=== PATIENT | female | born 2000 | race Hispanic/Latino ===

== ENCOUNTER 2023-12-10 20:31 | Emergency (ER) | payer OTHER ==
--- OUTSIDE RECORDS SUMMARY | 2023-12-10 20:34 | XMS REPORT | Continuity of Care Document ---
Author Name Unknown Address [address] [place] [address] [email or web address] Address [address] [place] [address] Care Team Providers Care Lead Web Developer Name Role Phone PCP, PATIENT DOES NOT HAVE A Primary Care Physic ha Unavailable ARIANA DONAHUE Attending Clinician Unavailable Ariana Donahue MD Attending Clinician [phone] Lab, Ang - Db Attending Clinician Unavailable Doctor Unassigned, [place] Attending Clinician U Alyx Gupta MD Attending Clinician [phone] Glenna Newby NP Attending Clinician + [phone] GLENNA NEWBY Attending Clinician Unavailmicheal GAONA ALYXHARIS QUINTANA Attending Clinician Unavailable Abram Skelton CRNA Attending Clinician [phone] Lupe Grover MD Attending Clinician [phone] Pob, Adc Lab Main Attending Clinician Unavailabl e Ultrasound, Adc Mfm Attending Clinician Unavaila Sidra Moya MD Attending Clinician + SIDRA BERGMAN Attending Clinician SAKINA Beckwith Attending Clinician Unavailable Sakina Amaro PA-C Attending Clinician [phone] Ultrasound, Ang-Mfm Attending Clinician Unavaila munira GAONA ALYX CAM Admitting Clinician Unavailable Alyx Gaona MD Admitting Clinician [phone] Payers Payer Name Policy Type Policy Number Effective Date Expirati on Date Source ALCIRA GARCIA [id number] 2011 00:00:00 Problems Condition Name Condition Details Condition Category Status Onset Date Resolution Date Last Treatment Date Treating Clinician Comments Source Liveborn infant, of [place] , born in hospital by vaginal delivery Liveborn , of [place] , born in hospital by vaginal delivery Disease Active 1-31 00:00: [address] [facility] Vacuum-ass isted vaginal delivery Vacuum-ass isted vaginal delivery Disease Active 1-31 00:00: 00 [facility] 39 weeks gestation of 39 weeks gestation of Disease Active 1-30 00:00: 00 [facility] Encounter for planned induction of labor Encounter for planned induction of labor Disease Active 1-30 00:00: 00 [facility] Obesity in Obesity in Disease Active 2021-08 0-29 00:00: 00 [facility] Nausea and vomiting during Nausea and vomiting during Disease Active 7-27 00:00: 00 [facility] Chlamydia trachomati s infection of lower genitourin irene sites Chlamydia trachomati s infection of lower genitourin irene sites Disease Active 6-24 00:00: 00 [facility] High risk , antepartum High risk , antepartum Disease Active 0 6-24 00:00: 00 [facility] Pelvic cramping in antepartum period Pelvic cramping in antepartum period Disease Active 6-03 00:00: 00 [facility] Allergies, Adverse Reactions, Alerts Allergy Name Allergy Type Status Severity Reaction(s) Onset Date Inactive Date Treating Clinician Comments Source NO KNOWN ALLERGIE S Drug Class Active [facility] Social History Social Habit Start Date Stop Date Quantity Comments Source ASSERTION 2021-12-24 00:00:00 [facility] History SDOH Alcohol Frequency [facility] History SDOH Alcohol Std Drinks [facility] History SDOH Alcohol Binge [facility] Alcohol intake 2023-10-08 00:00:00 2023-10-08 00:00:00 Ex-drinker (finding) [facility] Exposure to SARS-CoV-2 (event) 2022-10-08 00:00:00 2022-10-18 15:12:00 Not sure [facility] Tobacco use and exposure 2022-04-05 00:00:00 2022-04-05 00:00:00 Smokeless tobacco non-user [facility] Alcohol Comment 2022-01-11 00:00:00 2022-01-11 00:00:00 quit when found out was [facility] History of Social function 2022-01-11 00:00:00 2022-01-11 00:00:00 [facility] Sex Assigned At 2000 00:00:00 2000 00:00:00 [facility] Smoking Status Start Date Stop Date Source Never smoked tobacco [facility] Medications Ordered Medication Name Filled Medication Name Start Date Stop Date Current Medication? Ordering Clinician Indication Dosage Frequency Signature (SIG) Comments Components Source norgestimat e-ethinyl estradioL 0.25-35 mg-mcg per tablet 00:00: 00 Yes [id number] 1{tbl} Take 1 tablet by mouth in the morning. [facility] norgestimat e-ethinyl estradioL 0.25-35 mg-mcg per tablet 10-08 00:00: 00 00:00 :00 No [id number] 1{tbl} Take 1 tablet by mouth in the morning. [facility] vitamin w/FA tablet 09-11 00:00: 00 Yes [id number] 1{tbl} Take 1 tablet by mouth in the morning. [facility] vitamin w/FA tablet 09-11 00:00: 00 10-08 00:00 :00 No [id number] 1{tbl} Take 1 tablet by mouth in the morning. [facility] docusate 100 mg capsule 09-11 00:00: 00 10-08 00:00 :00 No [id number] 200mg Take 2 capsules by mouth once daily as needed for Constipati on. [facility] ferrous sulfate 325 mg (65 mg iron) tablet 09-11 00:00: 00 10-08 00:00 :00 No [id number] 325mg Take 1 tablet by mouth in the morning and 1 tablet in the evening. [facility] ibuprofen 600 mg tablet 2 00:00: 00 10-08 00:00 :00 No [id number] 600mg Take 1 tablet by mouth every 6 (six) hours as needed (Pain). Take with food or milk. [facility] witch Charis (TUCKS) 50 % topical pad 09-10 09:41: 42 Yes Topical, Q4HPRN, Starting on Fri09/10/22 at 0341, Until Discontinu ed, Routine, rectal/hem orrhoidal pain [facility] rho(D) immune globulin (RHOGAM) syringe 300 mcg 09-10 09:41: 18 Yes 300ug 300 mcg, Intramuscu lar, ONCE, For 1 dose, Conditiona l, Routine [facility] HYDROcodone -acetaminop hen (NORCO 5) 5-325 mg tablet 1 tablet 09-10 09:41: 16 Yes 1{tbl} 1 tablet, Oral, Q6HPRN, Starting on Fri09/10/22 at 0341, Until Discontinu ed, Routine, Pain (scale 7-10) [facility] ibuprofen (IBU) tablet 600 mg 09-10 09:41: 16 Yes 600mg 600 mg, Oral, Q6HPRN, Starting on Fri09/10/22 at 0341, Until Discontinu ed, Routine, Pain (scale 4-6) [facility] acetaminoph en (TYLENOL) tablet 650 mg 09-10 09:41: 16 Yes 650mg 650 mg, Oral, Q6HPRN, Starting on Fri09/10/22 at 0341, Until Discontinu ed, Routine, Pain (scale 1-3) [facility] diphenhydrA MINE (BENADRYL) tablet 25 mg 09-10 09:41: 16 Yes 25mg 25 mg, Oral, Q6HPRN, Starting on Fri09/10/22 at 0341, Until Discontinu ed, Routine, Sleep, Itching [facility] ondansetron (ZOFRAN (PF)) injection 4 mg 09-10 09:41: 16 Yes 4mg 4 mg, Slow IV Push, Q8HPRN, Starting on Fri09/10/22 at 034, Until Discontinu ed, Routine, Nausea and Vomiting (N/V) [facility] simethicone (GAS RELIEF (SIMETHICON E)) chewable tablet 160 mg 09-10 09:41: 16 Yes 160mg 160 mg, Oral, PC+HSPRN, Starting on Fri09/10/22 at 034, Until Discontinu ed, Routine, Gas [facility] docusate (COLACE) capsule 200 mg 09-10 09:41: 16 Yes 200mg 200 mg, Oral, QDAILYPRN, Starting on Fri09/10/22 at 0341, Until Discontinu ed, Routine, Constipati on [facility] magnesium hydroxide (MILK OF MAGNESIA) 400 mg/5 mL suspension 30 mL 09-10 09:41: 16 Yes 30mL 30 mL, Oral, QDAILYPRN, Starting on Fri09/10/22 at 034, Until Discontinu ed, Routine, Constipati on [facility] benzocaine- menthol (DERMOPLAST ) 20-0.5 % topical spray 09-10 09:41: 15 Yes Topical, PRN, Starting on Fri09/10/22 at 0341, Until Discontinu ed, Routine, Perineum discomfort [facility] methylergon ovine (METHERGINE ) injection 0.2 mg 09-10 09:23: 00 09-10 09:23 :00 No .2mg 0.2 mg, Intramuscu lar, ONCE, 1 dose, On Fri09/10/22 at 0330, Routine [facility] fentaNYL-ro pivacaine 2 mcg/mL-0.1 % (PF) in NS 200 mL epidural infusion RTU 09-10 02:11: 00 09-10 12:30 :42 No Epidural, ONCE INTRA PROCEDURE, Starting on Fri09/09/22 at 2010, Until Fri09/10/22 at 0630, Routine, Intra-op [facility] lidocaine-e pinephrine (XYLOCAINE W/EPINEPHRI NE) 1.5 %-1:200,000 injection 09-10 02:09: 00 09-10 12:30 :42 No Intraderma l, ONCE INTRA PROCEDURE, Starting on Fri09/09/22 at 2008, Until Fri09/10/22 at 0630, Routine, Intra-op [facility] oxytocin (PITOCIN) 30 units in NS 500 mL IV infusion 09-10 01:15: 00 09-10 09:41 :28 No 2mU/min at 2-40 mL/hr, IV Infusion, TITRATE, Starting on Fri09/09/22 at 1915, Until Fri09/10/22 at 0341, NIC [facility] FENTanyl PF (SUBLIMAZE (PF)) injection 100 mcg 09-09 16:38: 14 09-10 09:41 :42 No 100ug 100 mcg, Slow IV Push, Q1HPRN, Starting on Fri09/09/22 at 1038, Until Fri09/10/22 at 0341, Routine, contractio n pain without an epidural and SVE < 8 cm and Cat I strip [facility] D5W-LR IV infusion 1,000 mL 09-09 16:38: 14 09-10 09:41 :37 No 1000mL at 1-125 mL/hr, IV Infusion, TITRATE, Starting on Fri09/09/22 at 1038, Until Fri09/10/22 at 0341, Routine [facility] lactated ringers IV infusion 500 mL 09-09 16:38: 14 09-10 02:32 :00 No 500mL at 999 mL/hr, 500 mL, IV Infusion, PRN - SEE INSTRUCTIO NS, 1 dose, Starting on Fri09/09/22 at 1038, Until Fri09/09/22 at 203, Routine [facility] PNV no.95/jasvir us fum/folic ac ( ORAL) 2021-08 2-13 13:50: 54 07-23 00:00 :00 No Take by mouth. [facility] ascorbic acid, vitamin C, 500 mg tablet 2021-08 0- 00:00: 00 10-08 00:00 :00 No [id number] 500mg Take 1 tablet by mouth in the morning. [facility] ferrous sulfate (IRON, FERROUS SULFATE,) 325 mg (65 mg iron) tablet 2021-08 0 00:00: 00 09-11 00:00 :00 No [id number] 325mg Take 1 tablet by mouth in the morning. [facility] PNV no.95/jasvir us fum/folic ac ( ORAL) 2021-08 0-24 09:59: 38 Yes Take by mouth. [facility] PNV no.95/jasvir us fum/folic ac ( ORAL) 9- 09:29: 55 Yes Take by mouth. [facility] PNV no.95/jasvir us fum/folic ac ( ORAL) 8- 14:40: 51 Yes Take by mouth. [facility] metoclopram garrick HCl 10 mg tablet 7-25 00:00: 00 07-23 00:00 :00 No [id number] 10mg Take 1 tablet by mouth every 6 (six) hours as needed for Nausea and Vomiting (N/V). [facility] PNV 102-iron-fo late-dha (VITAFOL FE PLUS) 90 mg iron- 1 mg-200 mg Cap 02-01 00:00: 00 09-11 00:00 :00 No [id number] Take 1 TAB-CAP/M2 by mouth daily. [facility] azithromyci n 500 mg tablet 6- 00:00: 00 02-01 00:00 :00 No [id number] 500mg Take 1 tablet by mouth daily. [facility] PNV no.95/jasvir us fum/folic ac ( ORAL) 603 11:44: 54 Yes Take by mouth. [facility] Immunizations Ordered Immunization Name Filled Immunization Name Date Status Comments Source TDAP 2022-07-02 00:00:00 Completed [facility] TDAP 2022-07-02 00:00:00 Completed [facility] TDAP 2022-07-02 00:00:00 Completed [facility] TDAP 2022-07-02 00:00:00 Completed [facility] TDAP 2022-07-02 00:00:00 Completed [facility] TDAP 2022-07-02 00:00:00 Completed [facility] TDAP 2022-07-02 00:00:00 Completed [facility] TDAP 2022-07-02 00:00:00 Completed [facility] TDAP 2022-07-02 00:00:00 Completed [facility] TDAP 2022-07-02 00:00:00 Completed [facility] TDAP 2022-07-02 00:00:00 Completed [facility] TDAP 2022-07-02 00:00:00 Completed [facility] TDAP 2022-07-02 00:00:00 Completed [facility] TDAP 2022-07-02 00:00:00 Completed [facility] TDAP 2022-07-02 00:00:00 Completed [facility] TDAP 2022-07-02 00:00:00 Completed [facility] TDAP 2022-07-02 00:00:00 Completed [facility] Pneumococcal 7 Conjugate, PCV7 (Prevnar7) 2004-11-20 00:00:00 Completed [facility] Pneumococcal 7 Conjugate, PCV7 (Prevnar7) 2004-11-20 00:00:00 Completed [facility] TDAP Unknown Completed [facility] TDAP Unknown Completed [facility] TDAP Unknown Completed [facility] HPV9 Unknown Completed [facility] TDAP Unknown Completed [facility] HPV9 Unknown Completed [facility] TDAP Unknown Completed [facility] HPV9 Unknown Completed [facility] TDAP Unknown Completed [facility] HPV9 Unknown Completed [facility] Vital Signs Vital Name Observation Time Observation Value Comments S jacqui Systolic blood pressure 2023-10-08 16:40:00 122 mm[Hg] [facility] Diastolic blood pressure 2023-10-08 16:40:00 87 mm[Hg] [facility] Heart rate 2023-10-08 16:40:00 68 /min [facility] Body temperature 2023-10-08 16:40:00 36.72 Radha [facility] Respiratory rate 2023-10-08 16:40:00 16 /min [facility] Body height 2023-10-08 16:40:00 152.4 cm [facility] Body weight 2023-10-08 16:40:00 78.926 kg [facility] BMI 2023-10-08 16:40:00 33.98 kg/m2 [facility] Systolic blood pressure 2022-10-18 21:22:00 124 mm[Hg] [facility] Diastolic blood pressure 2022-10-18 21:22:00 72 mm[Hg] [facility] Heart rate 2022-10-18 21:22:00 89 /min [facility] Body temperature 2022-10-18 21:22:00 36.67 Radha [facility] Respiratory rate 2022-10-18 21:22:00 16 /min [facility] Body height 2022-10-18 21:22:00 152.4 cm [facility] Body weight 2022-10-18 21:22:00 81.375 kg [facility] BMI 2022-10-18 21:22:00 35.04 kg/m2 [facility] Systolic blood pressure 2022-09-11 13:44:00 104 mm[Hg] [facility] Diastolic blood pressure 2022-09-11 13:44:00 60 mm[Hg] [facility] Heart rate 2022-09-11 13:44:00 79 /min [facility] Body temperature 2022-09-11 13:44:00 36.61 Radha [facility] Respiratory rate 2022-09-11 13:44:00 18 /min [facility] Oxygen saturation in Arterial blood by Pulse oximetry 2022-09-11 13:44:00 99 /min [facility] Body height 2022-09-09 17:51:00 152.4 cm [facility] Body weight 2022-09-09 17:51:00 92.08 kg [facility] BMI 2022-09-09 17:51:00 39.65 kg/m2 [facility] Systolic blood pressure 2022-09-06 20:34:00 109 mm[Hg] [facility] Diastolic blood pressure 2022-09-06 20:34:00 74 mm[Hg] [facility] Heart rate 2022-09-06 20:34:00 81 /min [facility] Body temperature 2022-09-06 20:34:00 36.83 Radha [facility] Respiratory rate 2022-09-06 20:34:00 18 /min [facility] Body height 2022-09-06 20:34:00 154.9 cm [facility] Body weight 2022-09-06 20:34:00 89.268 kg [facility] BMI 2022-09-06 20:34:00 37.19 kg/m2 [facility] Systolic blood pressure 2022-08-30 20:15:00 111 mm[Hg] [facility] Diastolic blood pressure 2022-08-30 20:15:00 74 mm[Hg] [facility] Heart rate 2022-08-30 20:15:00 105 /min [facility] Body temperature 2022-08-30 20:15:00 36.67 Radha [facility] Body height 2022-08-30 20:15:00 154.9 cm [facility] Body weight 2022-08-30 20:15:00 88.587 kg [facility] BMI 2022-08-30 20:15:00 36.90 kg/m2 [facility] Systolic blood pressure 2022-08-16 19:36:00 111 mm[Hg] [facility] Diastolic blood pressure 2022-08-16 19:36:00 77 mm[Hg] [facility] Heart rate 2022-08-16 19:36:00 90 /min [facility] Body temperature 2022-08-16 19:36:00 36.78 Radha [facility] Respiratory rate 2022-08-16 19:36:00 16 /min [facility] Body height 2022-08-16 19:36:00 154.9 cm [facility] Body weight 2022-08-16 19:36:00 88.633 kg [facility] BMI 2022-08-16 19:36:00 36.92 kg/m2 [facility] Oxygen saturation in Arterial blood by Pulse oximetry 2022-08-16 19:36:00 97 /min [facility] Systolic blood pressure 2022-07-23 20:05:00 103 mm[Hg] [facility] Diastolic blood pressure 2022-07-23 20:05:00 66 mm[Hg] [facility] Heart rate 2022-07-23 20:05:00 77 /min [facility] Body temperature 2022-07-23 20:05:00 37 Radha [facility] Respiratory rate 2022-07-23 20:05:00 16 /min [facility] Body height 2022-07-23 20:05:00 154.9 cm [facility] Body weight 2022-07-23 20:05:00 85.684 kg [facility] BMI 2022-07-23 20:05:00 35.69 kg/m2 [facility] Oxygen saturation in Arterial blood by Pulse oximetry 2022-07-23 20:05:00 98 /min [facility] Systolic blood pressure 2022-07-02 22:39:00 105 mm[Hg] [facility] Diastolic blood pressure 2022-07-02 22:39:00 65 mm[Hg] [facility] Heart rate 2022-07-02 22:39:00 95 /min [facility] Body temperature 2022-07-02 22:39:00 36.72 Radha [facility] Respiratory rate 2022-07-02 22:39:00 18 /min [facility] Body height 2022-07-02 22:39:00 154.9 cm [facility] Body weight 2022-07-02 22:39:00 84.369 kg [facility] BMI 2022-07-02 22:39:00 35.14 kg/m2 [facility] Systolic blood pressure 2022-06-03 14:58:00 98 mm[Hg] [facility] Diastolic blood pressure 2022-06-03 14:58:00 65 mm[Hg] [facility] Heart rate 2022-06-03 14:58:00 98 /min [facility] Body temperature 2022-06-03 14:58:00 36.61 Radha [facility] Respiratory rate 2022-06-03 14:58:00 16 /min [facility] Body height 2022-06-03 14:58:00 154.9 cm [facility] Body weight 2022-06-03 14:58:00 82.6 kg [facility] BMI 2022-06-03 14:58:00 34.41 kg/m2 [facility] Oxygen saturation in Arterial blood by Pulse oximetry 2022-06-03 14:58:00 99 /min [facility] Systolic blood pressure 2022-05-06 14:29:00 109 mm[Hg] [facility] Diastolic blood pressure 2022-05-06 14:29:00 75 mm[Hg] [facility] Heart rate 2022-05-06 14:29:00 94 /min [facility] Respiratory rate 2022-05-06 14:29:00 18 /min [facility] Body height 2022-05-06 14:29:00 154.9 cm [facility] Body weight 2022-05-06 14:29:00 80.377 kg [facility] BMI 2022-05-06 14:29:00 33.48 kg/m2 [facility] Oxygen saturation in Arterial blood by Pulse oximetry 2022-05-06 14:29:00 98 /min [facility] Systolic blood pressure 2022-04-05 19:40:00 108 mm[Hg] [facility] Diastolic blood pressure 2022-04-05 19:40:00 76 mm[Hg] [facility] Heart rate 2022-04-05 19:40:00 97 /min [facility] Body temperature 2022-04-05 19:40:00 36.78 Radha [facility] Respiratory rate 2022-04-05 19:40:00 18 /min [facility] Body height 2022-04-05 19:40:00 154.9 cm [facility] Body weight 2022-04-05 19:40:00 78.019 kg [facility] BMI 2022-04-05 19:40:00 32.50 kg/m2 [facility] Systolic blood pressure 2022-03-04 19:08:00 95 mm[Hg] [facility] Diastolic blood pressure 2022-03-04 19:08:00 62 mm[Hg] [facility] Heart rate 2022-03-04 19:08:00 98 /min [facility] Body temperature 2022-03-04 19:08:00 36.61 Radha [facility] Respiratory rate 2022-03-04 19:08:00 17 /min [facility] Body height 2022-03-04 19:08:00 152.4 cm [facility] Body weight 2022-03-04 19:08:00 77.565 kg [facility] BMI 2022-03-04 19:08:00 33.40 kg/m2 [facility] Systolic blood pressure 2022-02-01 16:31:00 107 mm[Hg] [facility] Diastolic blood pressure 2022-02-01 16:31:00 72 mm[Hg] [facility] Heart rate 2022-02-01 16:31:00 83 /min [facility] Body temperature 2022-02-01 16:31:00 37.11 Radha [facility] Body height 2022-02-01 16:31:00 152.4 cm [facility] Body weight 2022-02-01 16:31:00 79.606 kg [facility] BMI 2022-02-01 16:31:00 34.27 kg/m2 [facility] Procedures Procedure Date / Time Performed Performing Clinician Source GARDASIL 9 (HPV 9V) VACCINE 2023-10-08 16:55:43 Adum, Ariana Rios [facility] ASSIGNMENT OF BENEFITS 2023-10-08 16:27:28 Docto r Unassigned, [place] [facility] POCT TEST 2023-10-08 00:00:00 Adum, Ariana Rios [facility] CBC WITH DIFF 2022-09-11 10:19:00 Alyx Gaona [facility] CENTRAL NEURAXIAL BLOCK 2022-09-10 02:00:00 Isiah Grover [facility] HB ABO GROUPING 2022-09-09 17:00:00 Alyx Gaona [facility] RHO (D) IMMUNE GLOBULIN 2022-09-09 17:00:00 Alyx Gaona [facility] CONSENT/REFUSAL FOR DIAGNOSIS AND TREATMENT 2022-09-06 21:57:03 Doctor Unassigned, [place] [facility] ASSIGNMENT OF BENEFITS 2022-09-06 21:49:12 Docto r Unassigned, [place] [facility] CONSENT/REFUSAL FOR DIAGNOSIS AND TREATMENT 2022-09-06 21:48:25 Doctor Unassigned, [place] [facility] POCT URINALYSIS W/O SPECIFIC GRAVITY 2022-09-06 00:00:00 Alyx Gaona [facility] >14 WEEKS US LIMITED 2022-08-30 20:54:05 Alyx Gaona [facility] DSU PRE-OP 2022-08-30 06:01:00 Doctor Unass igned, [place] [facility] POCT URINALYSIS W/O SPECIFIC GRAVITY 2022-08-30 00:00:00 Alyx Gaona [facility] POCT URINALYSIS W/O SPECIFIC GRAVITY 2022-08-16 00:00:00 Alyx Gaona [facility] TDAP VACCINE, >11 YRS, IM 2022-07-02 23:02:21 Sharona [facility] POCT URINALYSIS W/O SPECIFIC GRAVITY 2022-07-02 22:54:00 Sakina Amaro [facility] POCT URINALYSIS W/O SPECIFIC GRAVITY 2022-06-03 00:00:00 Glenna Newby [facility] POCT URINALYSIS W/O SPECIFIC GRAVITY 2022-05-06 14:30:00 Macho [facility] POCT URINALYSIS W/O SPECIFIC GRAVITY 2022-04-05 00:00:00 Alyx Gaona [facility] POCT URINALYSIS W/O SPECIFIC GRAVITY 2022-03-04 19:13:00 [facility] SCANNED LAB RESULTS 2022-02-27 05:01:00 Doctor U hilda, [place] [facility] US OB TRANSVAGINAL 2022-02-01 17:16:20 Alyx Gaona [facility] COMB SETTER CLINIC ULTRASOUND 2022-02-01 05:01:00 Doctor Unassigned, [place] [facility] POCT URINALYSIS W/O SPECIFIC GRAVITY 2022-02-01 00:00:00 Alyx Gaona [facility] Encounters Start Date/Time End Date/Time Encounter Type Admission Type Attending [facility] Care Facility Care Department Encounter ID Source 2023-12-08 08:30:00 2023-12-08 08:30:00 Outpatient R [facility] [id number] [facility] 2023-10-09 00:00:00 2023-10-09 00:00:00 Telephone AdumAriana [facility] [id number] [facility] 2023-10-08 12:45:00 2023-10-08 13:00:00 Health Evaluator Visit Lab, Ang - Db Godfrey Ariana [facility] [id number] [facility] 2023-10-08 10:30:00 2023-10-08 11:16:52 Office Visit Godfrey Ariana [facility] [id number] [facility] 2023-10-08 10:30:00 2023-10-08 11:16:52 Outpatient R GODFREY [facility] [id number] [facility] 2023-10-08 00:00:00 2023-10-08 00:00:00 Orders Only Doctor Unassigned, [place] [facility] 1.2.840.114 350.1.13.10 4.2.7.2.686 [id number] [id number] [facility] 2023-05-07 00:00:00 2023-05-07 00:00:00 Patient Secure Alyx Valdovinos Karan [facility] 1.2.840.114 350.1.13.10 4.2.7.2.686 [id number] 134 [id number] [facility] 2022-10-18 16:30:00 2022-10-18 16:45:00 Routine Visit Glenna Newby [facility] 1.2.840.114 350.1.13.10 4.2.7.2.686 [id number] 134 [id number] [facility] 2022-10-18 16:30:00 2022-10-18 16:30:00 Outpatient R GLENNA NEWBY CHERYAL [facility] [id number] [facility] 2022-10-11 14:30:00 2022-10-11 14:30:00 Outpatient R ALYX GAONA [facility] [id number] [facility] 2022-09-09 10:19:00 2022-09-11 11:30:00 Inpatient P ALYX GAONA [facility] [place] [id number] [facility] 2022-09-09 10:19:00 2022-09-11 11:30:00 Hospital Encounter Alyx Gaona [facility] 1.2.840.114 350.1.13.10 4.2.7.2.686 [id number] [facility] 2022-09-10 20:00:00 2022-09-10 20:00:00 Anesthesia Event Abram Skelton [facility] 1.2.840.114 350.1.13.10 4.2.7.2.686 [id number] [id number] [facility] 2022-09-09 20:00:00 2022-09-10 06:30:00 Anesthesia Event Lupe Grover [facility] 1.2.840.114 350.1.13.10 4.2.7.2.686 [id number] [id number] [facility] 2022-09-06 15:45:00 2022-09-06 16:00:00 Health Evaluator Visit Pob, Adc Lab Main Alyx Gaona [facility] 1.2.840.114 350.1.13.10 4.2.7.2.686 [id number] [facility] 2022-09-06 14:45:00 2022-09-06 14:45:37 Outpatient R ALYX GAONA [facility] [id number] [facility] 2022-09-06 14:45:00 2022-09-06 14:45:37 Routine Visit Alyx Gaona [facility] 1.2.840.114 350.1.13.10 4.2.7.2.686 [id number] 134 [id number] [facility] 2022-09-04 00:00:00 2022-09-04 00:00:00 Glenna Hawthorne [facility] 1.2.840.114 350.1.13.10 4.2.7.2.686 [id number] [facility] 2022-09-02 14:15:00 2022-09-02 15:21:50 Outpatient R JIMENEZ ALYX [facility] [id number] [facility] 2022-09-02 14:15:00 2022-09-02 14:30:00 Health Evaluator Visit Lab, Jann [facility] 1.840.114 350.1.13.10 4.2.7.2.686 [id number] [facility] 2022-09-02 00:00:00 2022-09-02 00:00:00 [facility] 1.2840.114 350.1.13.10 4.2.7.2.686 [id number] 134 [id number] [facility] 2022-08-30 14:00:00 2022-08-30 14:53:54 Outpatient R ALYX GAONA [facility] [id number] [facility] 2022-08-30 14:00:00 2022-08-30 14:53:54 Routine Visit Jimenez Alyx [facility] 1.2840.114 350.1.13.10 4.2.7.2.686 [id number] 134 [id number] [facility] 2022-08-30 00:00:00 2022-08-30 00:00:00 Orders Only Doctor Unassigned, [place] [facility] 1.2.840.114 350.1.13.10 4.2.7.2.686 [id number] [facility] 2022-08-17 00:00:00 2022-08-17 00:00:00 Glenna Hawthorne [facility] 1.2.840.114 350.1.13.10 4.2.7.2.686 [id number] 134 [id number] [facility] 2022-08-16 13:30:00 2022-08-16 13:50:28 Outpatient R ALYX GAONA [facility] [id number] [facility] 2022-08-16 13:30:00 2022-08-16 13:50:28 Routine Visit Alyx Gaona [facility] 1.2.840.114 350.1.13.10 4.2.7.2.686 [id number] 134 [id number] [facility] 2022-07-30 15:00:00 2022-07-30 15:45:00 Health Evaluator Visit Ultrasound, Adc [facility] Sidra Fuentes [facility] 1.2.840.114 350.1.13.10 4.2.7.2.686 [id number] 134 [id number] [facility] 2022-07-30 15:00:00 2022-07-30 15:00:00 Outpatient P SIDRA FUENTES [facility] [id number] [facility] 2022-07-25 16:00:00 2022-07-25 16:00:00 Outpatient SAKINA DOZIER [facility] [id number] [facility] 2022-07-23 13:45:00 2022-07-23 14:16:19 Outpatient R GLENNA NEWBY CHERYAL [facility] [id number] [facility] 2022-07-23 13:45:00 2022-07-23 14:16:19 Routine Visit VikiGlenna fenton [facility] 1.840.114 350.1.13.10 4.2.7.2.686 [id number] 134 [id number] [facility] 2022-07-19 15:15:00 2022-07-19 15:15:00 Outpatient ALYX CESPEDES [facility] [id number] [facility] 2022-07-02 16:30:00 2022-07-02 17:02:23 Outpatient R SHARONA [facility] [id number] [facility] 2022-07-02 16:30:00 2022-07-02 17:02:23 [facility]ine [facility] 1..840.114 350.1.13.10 4.2.7.2.686 [id number] 134 [id number] [facility] 2022-07-01 09:15:00 2022-07-01 09:15:00 Outpatient R SHARONA [facility] [id number] [facility] 2022-06-28 11:00:00 2022-06-28 11:00:00 Outpatient ALYX CESPEDES [facility] [id number] [facility] 2022-06-07 10:00:00 2022-06-07 11:21:59 Health Evaluator Visit Lab, Alyx Larson [facility] 1..840.114 350.1.13.10 4.2.7.2.686 [id number] 353 [id number] [facility] 2022-06-07 10:00:00 2022-06-07 10:00:00 Outpatient ALYX CESPEDES [facility] [id number] [facility] 2022-06-07 00:00:00 2022-06-07 00:00:00 Telephone SaadGlenna campa [facility] 1..114 350.1.13.10 4.2.7.2.686 [id number] [facility] 2022-06-03 09:45:00 2022-06-03 10:31:52 Outpatient R [facility] [id number] [facility] 2022-06-03 09:45:00 2022-06-03 10:31:52 Routine Visit [facility] 1..114 350.1.13.10 4.2.7.2.686 [id number] [facility] 2022-05-31 14:45:00 2022-05-31 14:45:00 Outpatient R ALYX GAONA [facility] [id number] [facility] 2022-05-10 10:00:00 2022-05-10 10:15:00 Health Evaluator Visit Lab, Jann Sherman [facility] 1.84.114 350.1.13.10 4.2.7.2.686 [id number] [facility] 2022-05-10 10:00:00 2022-05-10 10:00:00 Outpatient R [facility] [id number] [facility] 2022-05-06 09:15:00 2022-05-06 09:38:38 Outpatient R GLENNA NEWBY [facility] [id number] [facility] 2022-05-06 09:15:00 2022-05-06 09:38:38 Routine Visit [facility] [place]note 2[facility] 1.84.114 350.1.13.10 4.2.7.2.686 [id number] [facility] 2022-05-03 14:30:00 2022-05-03 14:30:00 Outpatient R GLENNA NEWBY CHERYAL [facility] [id number] [facility] 2022-05-01 09:15:00 2022-05-01 10:15:00 Health Evaluator Visit Ultrasound, Sidra Lamb [facility] 1.840.114 350.1.13.10 4.2.7.2.686 [id number] [facility] 2022-05-01 09:15:00 2022-05-01 09:15:00 Outpatient P SIDRA FUENTES [facility] [id number] [facility] 2022-04-12 10:00:00 2022-04-12 10:15:00 Health Evaluator Visit Lab, Alyx Larson [facility] 1.840.114 350.1.13.10 4.2.7.2.686 [id number] [facility] 2022-04-12 10:00:00 2022-04-12 10:00:00 Outpatient R ALYX GAONA [facility] [id number] [facility] 2022-04-05 14:30:00 2022-04-05 14:52:59 Outpatient R ALYX GAONA [facility] [id number] [facility] 2022-04-05 14:30:00 2022-04-05 14:52:59 Routine Visit Alyx Gaona [facility] 1..114 350.1.13.10 4.2.7.2.686 [id number] 134 [id number] [facility] 2022-03-14 00:00:00 2022-03-14 00:00:00 Telephone Alyx Gaona [facility] 1..114 350.1.13.10 4.2.7.2.686 [id number] 134 [id number] [facility] 2022-03-04 14:00:00 2022-03-04 14:27:50 Outpatient R GLENNA NEWBY CHERYAL [facility] [id number] [facility] 2022-03-04 14:00:00 2022-03-04 14:27:50 Routine Visit [facility] 1..114 350.1.13.10 4.2.7.2.686 [id number] 134 [id number] [facility] 2022-03-04 00:00:00 2022-03-04 00:00:00 Letter (Out) [facility] 1.84.114 350.1.13.10 4.2.7.2.686 [id number] 134 [id number] [facility] 2022-02-27 08:45:00 2022-02-27 09:00:00 Health Evaluator Visit Lab, Jann Whitaker [facility] 1.84.114 350.1.13.10 4.2.7.2.686 [id number] [facility] 2022-02-27 08:45:00 2022-02-27 08:45:00 Outpatient [facility] [id number] [facility] 2022-02-27 08:00:00 2022-02-27 08:00:00 Outpatient R [facility] [id number] [facility] 2022-02-27 00:00:00 2022-02-27 00:00:00 Orders Only Doctor Unassigned, [place] [facility] 1.840.114 350.1.13.10 4.2.7.2.686 [id number] [facility] 2022-02-01 11:30:00 2022-02-01 11:57:49 Outpatient R GAONAALYX [facility] [id number] [facility] 2022-02-01 11:30:00 2022-02-01 11:57:49 Routine Visit JimenezAlyx [facility] 1.2840.114 350.1.13.10 4.2.7.2.686 [id number] [facility] 2022-02-01 00:00:00 2022-02-01 00:00:00 Orders Only Doctor Unassigned, [place] [facility] 1.2840.114 350.1.13.10 4.2.7.2.686 [id number] [facility] 2022-01-16 11:00:00 2022-01-16 11:15:00 Health Evaluator Visit Lab, Ang - Db [facility] 1..840.114 350.1.13.10 4.2.7.2.686 [id number] [facility] 2022-01-16 11:00:00 2022-01-16 11:10:30 Outpatient R ALYX GAONA [facility] [id number] [facility] 2022-01-15 00:00:00 2022-01-15 00:00:00 Case Management GaonaAlyx [facility] NAL BUILDING 1..840.114 350.1.13.10 4.2.7.2.686 [id number] 134 [id number] [facility] 2022-01-14 11:00:00 2022-01-14 11:38:[address] [facility] [id number] [facility] 2022-01-14 11:00:00 2022-01-14 11:15:00 Health Evaluator Visit Lab, Jann Gaona [facility] 1.2.840.114 350.1.13.10 4.2.7.2.686 [id number] 353 [id number] [facility] 2022-01-11 13:30:00 2022-01-11 13:45:00 Health Evaluator Visit Lab, Pat [facility]arsonCritical access hospital?[facility] 1.2.840.114 350.1.13.10 4.2.7.2.686 [id number] [facility] 2022-01-11 11:00:00 2022-01-11 12:24:29 Initial Visit Alyx Gaona [facility] 1.2.840.114 350.1.13.10 4.2.7.2.686 [id number] [facility] 2022-01-11 11:00:00 2022-01-11 12:24:29 Outpatient R JIMENEZ ALYX [facility] [id number] [facility] Results Test Description Test Time Test Comments Results Result Co mments Source [facility] [id number] 16:41:00* Test Item Value Reference Range Interpretation Comme [facility] POCT PREG (test code = 1605) Negative On board controls acceptable with C Line (test code = 3574) Yes POCT PREG LOT # (test code = 3575) POCT PREG TEST DATE ( test code = 3576) [facility] (D) IMMUNE [id number] 12:10:46* Test Item Value Reference Range Interpretation Comme nts RHIG CANDIDATE? (test code = 5055) No- see comment Patient is not a candidate for RhIg- Patient is Rh Positive.Performed at [facility] Laboratory Services - ADC Blood [address] [place] [id number] Free: [phone] No. [id number] [facility]Type and Screen - ONCE [id number] 18:22:34* Test Item Value Reference Range Interpretation Comme nts ABO & RH (test code = 20) O Positive Performed at [facility] Laboratory [facility] Blood [address] Free: [phone] No. [id number] IAT (test code = 1185) Negative Performed at [facility] Blood [address] Free: [phone] No. [id number] [facility]PO[facility] URINALYS[facility] W/O SPECIFIC [id number] 20:31:00* Test Item Value Reference Range Interpretation Comme nts POCT PH U (test code = 3254) n/a 5-8 POCT U LEUK EST (test code = 3263) n/a Negative - Negative POCT U NIT (test code = 3262) n/a Negative - Negati ve POCT U PROT (test code = 3259) negative Negative - Negat veronika POCT U GLU (test code = 3256) negative Negative - Negati ve POCT U KETONE (test code = 3258) n/a Negative - Neg ative POCT U BLD (test code = 3257) n/a Negative - Negati ve [facility] W/O SPECIFIC [id number] 20:27:00* Test Item Value Reference Range Interpretation Comme nts POCT PH U (test code = 3254) n/a 5-8 POCT U LEUK EST (test code = 3263) n/a Negative - Negative POCT U NIT (test code = 3262) n/a Negative - Negati ve POCT U PROT (test code = 3259) Negative Negative - Negat veronika POCT U GLU (test code = 3256) Normal Negative - Negati ve POCT U KETONE (test code = 3258) n/a Negative - Neg ative POCT U BLD (test code = 3257) n/a Negative - Negati ve [facility] W/O SPECIFIC [id number] 20:27:00* Test Item Value Reference Range Interpretation Comme nts POCT PH U (test code = 3254) n/a 5-8 POCT U LEUK EST (test code = 3263) n/a Negative - Negative POCT U NIT (test code = 3262) n/a Negative - Negati ve POCT U PROT (test code = 3259) Negative Negative - Negat veronika POCT U GLU (test code = 3256) Normal Negative - Negati ve POCT U KETONE (test code = 3258) n/a Negative - Neg ative POCT U BLD (test code = 3257) n/a Negative - Negati ve [facility] URINALYSIS W/O SPECIFIC [id number] 19:40:00* Test Item Value Reference Range Interpretation Comme nts POCT PH U (test code = 3254) n/a 5-8 POCT U LEUK EST (test code = 3263) n/a Negative - Negative POCT U NIT (test code = 3262) n/a Negative - Negati ve POCT U PROT (test code = 3259) negative Negative - Negat veronika POCT U GLU (test code = 3256) negative Negative - Negati ve POCT U KETONE (test code = 3258) n/a Negative - Neg ative POCT U BLD (test code = 3257) n/a Negative - Negati ve [facility] URINALYSIS W/O SPECIFIC [id number] 22:54:00* Test Item Value Reference Range Interpretation Comme nts POCT PH U (test code = 3254) n/a 5-8 POCT U LEUK EST (test code = 3263) n/a Negative - Negative POCT U NIT (test code = 3262) n/a Negative - Negati ve POCT U PROT (test code = 3259) negative Negative - Negat veronika POCT U GLU (test code = 3256) negative Negative - Negati ve POCT U KETONE (test code = 3258) n/a Negative - Neg ative POCT U BLD (test code = 3257) n/a Negative - Negati ve [facility] URINALYSIS W/O SPECIFIC [id number] 15:27:00* Test Item Value Reference Range Interpretation Comme nts POCT PH U (test code = 3254) n/a 5-8 POCT U LEUK EST (test code = 3263) n/a Negative - Negative POCT U NIT (test code = 3262) n/a Negative - Negati ve POCT U PROT (test code = 3259) negative Negative - Negat veronika POCT U GLU (test code = 3256) negative Negative - Negati ve POCT U KETONE (test code = 3258) n/a Negative - Neg ative POCT U BLD (test code = 3257) n/a Negative - Negati ve [facility] URINALYSIS W/O SPECIFIC [id number] 14:32:00* Test Item Value Reference Range Interpretation Comme nts POCT PH U (test code = 3254) n/a 5-8 POCT U LEUK EST (test code = 3263) n/a Negative - Negative POCT U NIT (test code = 3262) n/a Negative - Negati ve POCT U PROT (test code = 3259) negative Negative - Negat veronika POCT U GLU (test code = 3256) negative Negative - Negati ve POCT U KETONE (test code = 3258) n/a Negative - Neg ative POCT U BLD (test code = 3257) n/a Negative - Negati ve Lab Interpretation (test cod e = 83639-8) Normal [facility] URINALYSIS W/O SPECIFIC [id number] 19:53:00* Test Item Value Reference Range Interpretation Comme nts POCT PH U (test code = 3254) N/A 5-8 POCT U LEUK EST (test code = 3263) N/A Negative - Negative POCT U NIT (test code = 3262) N/A Negative - Negati ve POCT U PROT (test code = 3259) Negative Negative - Negat veronika POCT U GLU (test code = 3256) Negative Negative - Negati ve POCT U KETONE (test code = 3258) N/A Negative - Neg ative POCT U BLD (test code = 3257) N/A Negative - Negati ve [facility] URINALYSIS W/O SPECIFIC [id number] 19:13:00* Test Item Value Reference Range Interpretation Comme nts POCT PH U (test code = 3254) n/a 5-8 POCT U LEUK EST (test code = 3263) n/a Negative - Negative POCT U NIT (test code = 3262) n/a Negative - Negati ve POCT U PROT (test code = 3259) negative Negative - Negat veronika POCT U GLU (test code = 3256) normal Negative - Negati ve POCT U KETONE (test code = 3258) n/a Negative - Neg ative POCT U BLD (test code = 3257) n/a Negative - Negati ve [facility]/O SPECIFIC [id number] 16:28:00* Test Item Value Reference Range Interpretation Comme nts POCT PH U (test code = 3254) n/a 5-8 POCT U LEUK EST (test code = 3263) n/a Negative - Negative POCT U NIT (test code = 3262) n/a Negative - Negati ve POCT U PROT (test code = 3259) negative Negative - Negat veronika POCT U GLU (test code = 3256) negative Negative - Negati ve POCT U KETONE (test code = 3258) n/a Negative - Neg ative POCT U BLD (test code = 3257) n/a Negative - Negati ve [facility] Notes Date/Time Note Provider Source 2023-10-09 16:16:38 oyg3Bx2nUWNOv8CU02/Q K7efVL617VzaZsfYN9zbDD rxFDiIrxcm0OQcCeaOfyV72254-50-65N57:16:38F ormatting of this note might be different from the original.Received 90 day fill request for: Estora phillipsLasrosemary OV:10/08Med sent.LYNNE BENDER RN 10/09/2023 4:17 PM 31596-9Nxnzxjqwf encounter PwyoVE8228-78-25U89:18:21Telephone encounter NoteTXT1.2.840.983890.1.13.104.2.7.2.38816 9|[id number] for patient rgyx41781-3XqhjKHQWDGDWLSDPqkhpbbac C-CDA narrative text[id number] CIHNPVOODSARTPSH2609-51-77S13:18:211.2.840 .456997.1.72.3.15|1.2.840.232500.1.13.104. 2.7.2.727879_[id number] [facility] 2023-10-08 12:45:00 A/VNgPt5KxvlVUMzJ5kZ ty2V4srj0scpcfX4KrCDbh 0Ds+z004eYuyiZOfEmjR2R7919-86-21F95:45:00F ormatting of this note is different from the original.Images from the original note were not included.Venipuncture collection performed by clean technique on the right anticubitus. Total of 1 attempts were made. Slight pressure and a bandage/dressing were applied to the site(s). The patient experienced no complications. The following specimens were processed according to instructions and sent to [facility] laboratories per lab order on 10/08/2023 :LT BLUESST 2RED 1LAVPPTDK GREEN (LiHep)DK GREEN (SodH)GRAYDK BLUE (K2)DK BLUE (S)ACDBlood CultureNIPT/NTD 06630-3Adhha UctuZJ3510-22-38E61:29:55Nurse NoteTXT1.2.840.165191.1.13.104.2.7.2.77690 9|[id number] for patient ppio63661-4Amshs NoteLNNARRATIVEFormatted C-CDA narrative text[id number] OYABNPJPBGVYHAWU2313-16-61W74:29:551.2.840 .382199.1.72.3.15|1.2.840.696219.1.13.104. 2.7.2.727879_[id number] [facility]"
[2023-12-10] MEDS ORDERED: IBUPROFEN 200 MG TAB PO ONE (21:03)
[2023-12-10] MEDS ORDERED: HYDROCODONE/APAP 7.5/325 MG TAB ONE (21:03)
--- NOTE | 2023-12-10 21:21 | RAD REPORT ---
EXAM DESCRIPTION: RAD - Ankle Left 3 View - 12/10/2023 9:11 pm CLINICAL HISTORY: PAIN COMPARISON: Ankle Left 3 View dated 07/10/2016 FINDINGS: No fracture or dislocation seen. Small posterior calcaneal spur.
--- NOTE | 2023-12-10 21:29 | ER ---
Nurse's Notes [facility] Name: Brianna Williamson Age: 23 yrs Sex: Female : 2000 Arrival Date: 12/10/2023 Time: 20:31 Bed 8 Private MD: Diagnosis: Sprain of ankle Presentation: 12/09 20:45 Chief complaint: Patient states: WAS WALKING DOWN THE STEPS AND MISS STEPPED AND jj7 TWISTED HER LEFT ANKLE. NOW PAIN AND SWELLING. UNABLE TO BARE WEIGHT. Coronavirus screen: At this time, the client does not indicate any symptoms associated with coronavirus-19. Ebola Screen: No symptoms or risks identified at this time. Initial Sepsis Screen: Does the patient meet any 2 criteria? No. Patient's initial sepsis screen is negative. Does the patient have a suspected source of infection? No. Patient's initial sepsis screen is negative. Risk Assessment: Do you want to hurt yourself or someone else? Patient reports no desire to harm self or others. Onset of symptoms was December 10, 2023. 20:45 Method Of Arrival: Wheelchair j7 20:45 Acuity: VALORIE 4 jj7 Triage Assessment: 20:51 General: Appears in no apparent distress. uncomfortable, Behavior is calm, cooperative, jj7 appropriate for age. Pain: Complains of pain in left lateral malleolus Pain currently is 5 out of 10 on a pain scale. at worst was 7 out of 10 on a pain scale. Musculoskeletal: Swelling present in left foot. Injury Description: TWISTING. POKE IN: 20:51 1, Living 1, LMP 12/07/2023, unknown jj7 Historical: - Allergies: 20:51 No Known Allergies; jj7 - PMHx: 20:51 None; jj7 - PSHx: 20:51 None; jj7 - Immunization history:: Client reports receiving the 2nd dose of the Covid vaccine, Flu vaccine is not up to date. - Infectious Disease History:: Denies. - Social history:: Smoking status: Reported history of juuling and/or vaping. Patient uses alcohol, occasionally. Patient/guardian denies using street drugs. Screenin:53 [facility] ED Fall Risk Assessment (Adult) History of falling in the last 3 months, jj7 including since admission No falls in past 3 months (0 pts) Confusion or Disorientation No (0 pts) Intoxicated or Sedated No (0 pts) Impaired Gait Yes (1 pt) Mobility Assist Device Used No (0 pt) Altered Elimination No (0 pt) Score/Fall Risk Level 0 - 2 = Low Risk Oriented to surroundings, Maintained a safe environment, Educated pt \T\ family on fall prevention, incl call for assistance when getting out of bed. Abuse screen: Denies threats or abuse. Nutritional screening: No deficits noted. Tuberculosis screening: No symptoms or risk factors identified. Assessment: 20:59 Reassessment: Patient appears in no apparent distress at this time. General: Appears in bm8 no apparent distress. uncomfortable, Behavior is calm, cooperative, appropriate for age. Pain: Complains of pain in left leg and left lateral malleolus Pain does not radiate. Pain currently is 5 out of 10 on a pain scale. at worst was 7 out of 10 on a pain scale. Quality of pain is described as sharp, throbbing, Pain began 30 min ago. Neuro: No deficits noted. Level of Consciousness is awake, alert, obeys commands, Oriented to person, place, time, situation, Appropriate for age. Cardiovascular: No deficits noted. Denies chest pain, lightheadedness, shortness of breath, Capillary refill < 3 seconds Patient's skin is warm and dry. Pulses are all present. Respiratory: No deficits noted. Airway is patent Trachea midline Respiratory effort is even, unlabored, Respiratory pattern is regular, symmetrical, Breath sounds are clear bilaterally. GI: No deficits noted. No signs and/or symptoms were reported involving the gastrointestinal system. : No signs and/or symptoms were reported regarding the genitourinary system. EENT: No signs and/or symptoms were reported regarding the EENT system. Derm: No signs and/or symptoms reported regarding the dermatologic system. 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 21:37 Reassessment: Patient appears in no apparent distress at this time. No changes from bm8 previously documented assessment. Patient and/or family updated on plan of care and expected duration. Pain level reassessed. Patient is alert, oriented x 3, equal unlabored respirations, skin warm/dry/pink. Vital Signs: 20:45 BP 113 / 75; Pulse 83; Resp 17; Temp 98; Pulse Ox 100% ; Weight 79.38 kg; Height 5 ft. jj7 0 in. ; Pain 5/10; 21:37 BP 112 / 78; Pulse 81; Resp 17; Temp 98.1; Pulse Ox 100% ; Pain 7/10; bm8 20:45 Body Mass Index 34.18 (79.38 kg, 152.4 cm) jj7 20:45 Pain Scale: Adult jj7 21:37 Pain Scale: Adult bm8 [place] Coma Score: 20:59 Eye Response: spontaneous(4). Motor Response: obeys commands(6). Verbal Response: bm8 oriented(5). Total: 15. 21:37 Eye Response: spontaneous(4). Motor Response: obeys commands(6). Verbal Response: bm8 oriented(5). Total: 15. ED Course: 20:34 Patient arrived in ED. mr 20:37 Tatiana Matamoros [facility]-C [facility] sb4 20:37 Melo Alanis MD is Attending Physician. sb4 20:50 Triage completed. jj7 20:51 Arm band placed on right wrist. Patient placed in an exam room, on a stretcher. jj7 20:53 Patient has correct armband on for positive identification. Bed in low position. Call jj7 light in reach. Adult w/ patient. Provided Education on: USE OF CALL BUTTS. Warm blanket given. 20:56 Alexys Brennan, RN is Primary Nurse. bm8 20:59 Pulse ox on. NIBP on. bm8 20:59 No provider procedures requiring assistance completed. Patient did not have IV access bm8 during this emergency room visit. 21:13 Ankle Left 3 View XRAY In Process Unspecified. EDMS 21:29 Silver Brennan MD is Referral Physician. sb4 21:37 Provided Education on: crutch training provided. bm8 21:37 Crutch training done. 3D boot applied to left foot. bm8 Administered Medications: 21:05 Drug: Hydrocodone-Acetaminophen PO (7.5 mg-325 mg) 1 tabs PO once Route: PO; bm8 21:37 Follow up: Response: No adverse reaction bm8 21:05 Drug: Ibuprofen PO 600 mg PO once Route: PO; bm8 21:37 Follow up: Response: No adverse reaction bm8 Medication: 20:59 VIS not applicable for this client. bm8 Outcome: 21:29 Discharge ordered by . sb4 21:37 Discharged to home ambulatory, with crutches, bm8 21:37 Condition: stable 21:37 Discharge instructions given to patient, family, Instructed on discharge instructions, follow up and referral plans. medication usage, safety practices, crutch walking, Demonstrated understanding of instructions, follow-up care, medications, crutch walking, 21:39 Patient left the ED. bm8 Signatures: Dispatcher [employer] EDMS Anitra Min, Reg Reg mr Clotilde Jeffrey, RN RN Tatiana Cramer, PA-C PA-C sb4 Alexys Brennan, RN RN bm8
--- NOTE | 2023-12-10 21:30 | EDPHYS ---
Physician Documentation [facility] Name: Brianna Williamson Age: 23 yrs Sex: Female : 2000 Arrival Date: 12/10/2023 Time: 20:31 Bed 8 Private MD: ED Physician Melo Alanis HPI: 12/09 20:58 This 23 yrs old Female presents to ER via Wheelchair with complaints of Ankle sb4 Injury. 20:58 The patient presents with pain, that is acute. sb4 20:58 The complaints affect the left ankle. Onset: The symptoms/episode began/occurred just sb4 prior to arrival. Context: The problem was sustained at home, resulted from twisting, The mechanism of injury involved inversion of the affected ankle. The patient is unable to bear weight. The patient is not able to ambulate. Associated signs and symptoms: The patient has no apparent associated signs or symptoms. Modifying factors: The symptoms are alleviated by sitting, the symptoms are aggravated by weight bearing, wearing shoes. The patient has not experienced similar symptoms in the past. The patient has not recently seen a physician. PET CAREGIVER: 20:51 1, Living 1, LMP 12/07/2023, unknown jj7 Historical: - Allergies: 20:51 No Known Allergies; jj7 - PMHx: 20:51 None; jj7 - PSHx: 20:51 None; jj7 - Immunization history:: Client reports receiving the 2nd dose of the Covid vaccine, Flu vaccine is not up to date. - Infectious Disease History:: Denies. - Social history:: Smoking status: Reported history of juuling and/or vaping. Patient uses alcohol, occasionally. Patient/guardian denies using street drugs. ROS: 20:58 Constitutional: Negative for fever, chills, and weight loss, sb4 20:58 MS/extremity: Positive for injury or acute deformity, decreased range of motion, pain, swelling, tenderness, Exam: 21:26 Constitutional: This is a well developed, well nourished patient who is awake, alert, sb4 and in no acute distress. Head/Face: Normocephalic, atraumatic. Eyes: Extra-ocular motions intact. Periorbital areas with no swelling, redness, or edema. ENT: Mucous membranes moist. Skin: Warm, dry with normal turgor. Normal color with no rashes, no lesions, and no evidence of cellulitis. 21:26 Musculoskeletal/extremity: Joints: the left ankle displays pain at rest, painful range of motion, swelling, tenderness, Vital Signs: 20:45 BP 113 / 75; Pulse 83; Resp 17; Temp 98; Pulse Ox 100% ; Weight 79.38 kg; Height 5 ft. jj7 0 in. ; Pain 5/10; 21:37 BP 112 / 78; Pulse 81; Resp 17; Temp 98.1; Pulse Ox 100% ; Pain 7/10; bm8 20:45 Body Mass Index 34.18 (79.38 kg, 152.4 cm) jj7 20:45 Pain Scale: Adult jj7 21:37 Pain Scale: Adult bm8 [place] Coma Score: 20:59 Eye Response: spontaneous(4). Motor Response: obeys commands(6). Verbal Response: bm8 oriented(5). Total: 15. 21:37 Eye Response: spontaneous(4). Motor Response: obeys commands(6). Verbal Response: bm8 oriented(5). Total: 15. MDM: 20:55 Patient medically screened. sb4 21:26 Data reviewed: vital signs, nurses notes, radiologic studies, and as a result, I will sb4 discharge patient. 12/09 20:53 Order name: Ankle Left 3 View XRAY; Complete Time: 21:24 sb4 12/09 21:29 Order name: Walking boot; Complete Time: 21:37 sb4 12/09 21:29 Order name: Crutches; Complete Time: 21:37 sb4 Administered Medications: 21:05 Drug: Hydrocodone-Acetaminophen PO (7.5 mg-325 mg) 1 tabs PO once Route: PO; bm8 21:37 Follow up: Response: No adverse reaction bm8 21:05 Drug: Ibuprofen PO 600 mg PO once Route: PO; bm8 21:37 Follow up: Response: No adverse reaction bm8 Disposition: 23:20 Co-signature as Attending Physician, Melo Alanis MD I agree with the assessment sp4 and plan of care. I reviewed the patient's care provided by the Advanced Practice Provider and agree with the diagnosis and treatment plan. Disposition Summary: 12/10/23 21:29 Discharge Ordered Notes: Location: Home sb4 Problem: new sb4 Symptoms: have improved sb4 Condition: Stable sb4 Diagnosis - Sprain of ankle sb4 Followup: sb4 - With: Silver Brennan MD - When: As needed - Reason: Further diagnostic work-up, Recheck today's complaints, Re-evaluation by your physician Discharge Instructions: - Discharge Summary Sheet sb4 - Ankle Sprain, [id number] sb4 Forms: - Patient Portal Instructions sb4 - Leadership Thank You Letter sb4 Signatures: Dispatcher [employer] Clotilde Thompson, RN RN jj7 Tatiana Matamoros, PA-C PA-C sb4 Melo Alanis MD MD sp4 Alexys Brennan RN RN bm8 Corrections: (The following items were deleted from the chart) 20:54 20:54 Ankle Left 3 View+[email or web address] ordered. EDMS CHARLYMS
[2023-12-10 22:29] VITALS: BP 112/78; TEMP 98.1; O2SAT 100
== END 2023-12-10 21:39 | disposition home or self-care (01) ==
LOC: ER 20:31
DX: S93.402A Sprain of unspecified ligament of left ankle, initial encounter (principal)
CPT/HCPCS: 99284